=== PATIENT | male | born 1970 | race Two or more races ===

== ENCOUNTER 2020-06-24 21:02 | Emergency (ER) | payer OTHER ==
[~2020-06-24] VITALS: Ht 172.7 cm; Wt 86.2 kg
[~2020-06-24 21:02] MED LIST: CELEBREX100 MG PO; SKELAXIN800 MG PO
[2020-06-24] MEDS ORDERED: DICLOFENAC SODI75 MG PO (23:01)
[2020-06-24] MEDS ORDERED: NORFLEX100MG PO (23:01)
== END 2020-06-24 23:22 | disposition home or self-care (01) ==
LOC: ER 21:02
DX: M79.622 Pain in left upper arm (principal); M62.838 Other muscle spasm